=== PATIENT | female | born 1950 | race Asian ===

== ENCOUNTER 2016-08-25 11:00 | Inpatient (IN) | payer MEDICARE, BC ==
[~2016-08-25 11:00] MED LIST: ALLERGY10 MG PO; ASMANEX0 IH; ASPIRIN81 M1 PO; BENICAR20 M1 PO; BISOPROLOL FUMA10 MG PO; CALCIUM CITRAT1 EA25 PO; CALCIUM CITRATE1 TA PO; DULERA 200 MCG/13 G1 INH; DULERA 200 MCG/13 GM IH; ESTRACE1 M3 PO; FORADIL12 MCG IH; MAGNESIUM250 M1 PO; NORVASC5 MG PO; POTASSIUM; PREDNISONE10 MG PO; PRILOSEC OTC20 M1 PO; PROVENTIL HFA6.7 GM IH; ROBITUSSIN DM118 ML PO; ROSUVASTATIN CA10 MG PO; SINGULAIR10 M1 PO; SORIATANE25 M1 PO; SORIATANE25 MG PO; VITAMIN D250000 UNI1 PO; XALATAN2.5 M1 OP; XOPENEX0.63 MG/3 IH; ZITHROMAX500 M1 PO; [UNRECOGNIZED DRUG - CODE] PO
[2016-08-25 11:52] LABS: BASO % 0.4 % (0-2); EOS % 2.7 % (0-7); EOSINOPHIL ABSOLUTE COUNT 0.3 tho/cmm (0.0-0.7); HCT-HEMATOCRIT 41.2 % (34.0-49.0); HGB-HEMOGLOBIN 13.6 gm/dl (12.0-15.5); IMMATURE GRANULOCYTES ABSOLUTE 0.02 tho/cmm (0-0.03); IMMATURE GRANULOCYTES PERCENT 0.2 % (0-0.3); LYMPH % 16.8 % (20-45); LYMPH ABSOLUTE COUNT 1.7 tho/cmm (0.8-4.5); MCH (MEAN CORPUSCULAR HGB) 29.2 pg (28.0-32.0); MCV (MEAN CELL VOLUME) 88.4 fl (82.0-96.0); MEAN PLATELET VOLUME 11.8 cmc (9.4-12.4); MONO % 7.1 % (0-12); MONOCYTE ABSOLUTE COUNT 0.7 tho/cmm (0.0-1.2); NEUTROPHIL ABSOLUTE COUNT 7.2 tho/cmm (1.6-8.0); NEUTROPHIL-AUTOMATED 7.2 tho/cmm (1.6-8.0); NEUTROPHILS % 72.8 % (40-80); PLATELET COUNT 249 tho/cmm (150-450); RED BLOOD COUNT 4.66 mil/cmm (4.00-5.20); RED CELL DISTRIBUTION WIDTH 14.6 % (12.4-16.4); WHITE BLOOD COUNT 9.9 tho/cmm (4.0-10.0)
[2016-08-25 12:07] LABS: ALB/GLOB RATIO 0.9 (0.8-2.0); ALBUMIN 3.6 g/dl (3.5-5.0); ALKALINE PHOSPHATASE 110 U/L (33-138); ALT/SGPT 19 U/L (12-78); ANION GAP 12 mmol/L (0-20); AST/SGOT 15 U/L (10-40); BILIRUBIN,TOTAL 0.3 mg/dl (0-1.5); BLOOD UREA NITROGEN 12 mg/dl (6-24); CALCIUM 9.7 mg/dl (8.5-10.5); CARBON DIOXIDE-VENOUS 26 mmol/L (22-32); CHLORIDE 107 mmol/l (96-110); CREATININE 0.73 mg/dl (0.50-1.10); GLUCOSE 102 mg/dL (70-110); SODIUM 141 mmol/L (135-145); eGFR VALUE FOR BLACK >90 mL/Min
--- NOTE | 2016-08-26 15:59 | NUR ---
LIZBET HERNANDEZ-VISITED WITH PATIENT SHE LAY IN BED COMFORTABLE. STATES HER PAIN AND NAUSEA ARE DOING BETTER THAN THEY WERE EARLIER TODAY. STATES SHE IS HAVING PAIN IN HER HEAD,NECK AND SHOULDERS. I EXPLAINED IT COULD BE FROM THE GAS FROM THE SURGERY AND ENC HER TO AMBULATE TO TRY AND GET IT TO MOVE AROUND. SHE SAID SHE WALKED BUT THEN HER FEET GOT SWOLLEN, ENC HER TO STILL TRY AND WALK AT LEAST 4X/DAY IN THE HALLS. SHE AGREED AND STATES OTHERWISE PAIN AND NURSES HAVE BEEN GREAT. NO OTHER QUESTIONS OR CONCERNS.
[2016-08-27 05:34] LABS: ALBUMIN 2.7 g/dl (3.5-5.0); ALKALINE PHOSPHATASE 83 U/L (33-138); ALT/SGPT 33 U/L (12-78); ANION GAP 11 mmol/L (0-20); AST/SGOT 36 U/L (10-40); BLOOD UREA NITROGEN 12 mg/dl (6-24); CALCIUM 8.7 mg/dl (8.5-10.5); CARBON DIOXIDE-VENOUS 27 mmol/L (22-32); CHLORIDE 107 mmol/l (96-110); CREATININE 0.82 mg/dl (0.50-1.10); GLUCOSE 91 mg/dL (70-110); POTASSIUM 3.9 mmol/L (3.7-5.1); SODIUM 141 mmol/L (135-145); eGFR VALUE FOR BLACK 87 mL/Min
[2016-08-27 05:40] LABS: BILIRUBIN,TOTAL 0.5 mg/dl (0-1.5)
[2016-08-27] MEDS ORDERED: ULTRAM50 M1 PO (13:54)
== END 2016-08-27 14:15 | DRG 419 ==
LOC: SHSB 11:00 → ORW 12:35 → PACU 13:42 → 5WD 15:15
PROVIDERS: ADMIT Surgery
PROC: 0FT44ZZ Resection of Gallbladder, Percutaneous Endoscopic Approach (ICD-10-PCS; principal; 2016-08-25)
DX: K80.00 Calculus of gallbladder with acute cholecystitis without obstruction (principal); J44.9 Chronic obstructive pulmonary disease, unspecified; K80.10 Calculus of gallbladder with chronic cholecystitis without obstruction; L40.9 Psoriasis, unspecified; E78.5 Hyperlipidemia, unspecified; K21.9 Gastro-esophageal reflux disease without esophagitis; Z90.710 Acquired absence of both cervix and uterus
CPT/HCPCS: J0690; J1885; J2270; J2405; J3010; J7030